=== PATIENT | female | born 1995 | race Caucasian/White ===

== ENCOUNTER → 2017-05-24 | Outpatient (CLI) | payer MEDICAID | LOC: RAD 10:38 | PROVIDERS: ATTEND Family Medicine | DX: E04.1 Nontoxic single thyroid nodule (principal) | CPT/HCPCS: 76536 ==

== ENCOUNTER 2019-02-23 13:36 | Emergency (ER) | payer MEDICAID ==
[~2019-02-23] VITALS: Ht 182.9 cm; Wt 136.5 kg
[2019-02-23 16:25] LABS: BASOPHILS # (AUTO) 0.07 x10^3/uL (0-0.1); BASOPHILS % (AUTO) 1 % (0-1); EOSINOPHILS % (AUTO) 2 % (1-7); LYMPHOCYTES % (AUTO) 17 % (22-44); MD NO; MEAN CORPUSCULAR HEMOGLOBIN 30.1 pg (27.0-34.8); MEAN CORPUSCULAR HGB CONC 33.3 g/dL (32.4-35.8); MEAN CORPUSCULAR VOLUME 90.4 fL (80-100); MEAN PLATELET VOLUME 7.9 fL (7.4-10.4); MONOCYTES # (AUTO) 0.91 x10^3/uL (0.2-0.8); MONOCYTES % (AUTO) 8 % (2-9); NEUTROPHILS % (AUTO) 72 % (42-75); PLATELET COUNT 340 x10^3/uL (130-400); RED BLOOD COUNT 4.97 x10^6/uL (3.82-5.3); RED CELL DISTRIBUTION WIDTH 12.9 % (9.6-15.2)
[2019-02-23 16:33] LABS: ALBUMIN 3.5 g/dL (3.4-5.0); ANION GAP 4 mmol/L (5-15); CHLORIDE 109 mmol/L (98-107); CREATININE 0.71 mg/dL (0.55-1.02)
--- NOTE | 2019-02-23 16:36 | NUR ---
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
--- NOTE | 2019-02-23 16:45 | NUR ---
PT C/O CP AND SOB X4 DAYS. PAIN STARTS OVER LEFT CHEST AND SHOOTING PAIN RADIATING DOWN BILAT ARMS. PT DX WITH BLOOD CLOT AT END OF , BABY 5 MONTHS OLD. NO FURTHER TESTING DONE D/T ADVANCED PREGNANCE. CONNECTED TO MONITORING. CALL LIGHT IN REACH. CALL LIGHT IN REACH.
--- NOTE | 2019-02-23 17:11 | NUR ---
ALL RESULTS ARE BACK AT THIS TIME. CHART UP FOR RECHECK.
--- NOTE | 2019-02-23 17:49 | NUR ---
MD AT BEDSIDE TO UPDATE PT ON POC.
[2019-02-23] MEDS ORDERED: DEXAMETHASONE 4 MG/ML, 1ML PO ONE (19:00)
[2019-02-23] MEDS ORDERED: DEXAMETHASONE 4 MG/ML, 1ML ONE (19:04)
[2019-02-23 19:08] VITALS: BP 101/54
== END 2019-02-23 19:10 | disposition home or self-care (01) ==
LOC: ED 19:04
DX: J02.0 Streptococcal pharyngitis (principal)
CPT/HCPCS: 36415; 71045; 80048; 82040; 85025; 85379; 87880; 93005; 99284; J1100